=== PATIENT | male | born 2000 | race Asian ===

== ENCOUNTER 2024-06-03 11:05 | Day surgery (SDC) | payer BC ==
[2024-06-03] MEDS: Lactated Ringers 1,000 ML IV SCH (11:50)
[2024-06-03] MEDS ORDERED: propofoL 50 ML ONE (12:27)
[2024-06-03] MEDS ORDERED: Lidocaine 2% 5 ML SDV ONE (12:27)
== END 2024-06-03 14:16 | disposition home or self-care (01) ==
LOC: MW.SDS 11:05
PROVIDERS: ATTEND Surgery
DX: Z12.11 Encounter for screening for malignant neoplasm of colon (principal); Z80.0 Family history of malignant neoplasm of digestive organs
CPT/HCPCS: 45380; J2704; J7120; 00811; J3490

== ENCOUNTER 2024-08-10 20:48 | Emergency (ER) | payer BC ==
[2024-08-10] MEDS: Amoxicillin/Clavulanate K 875-125 MG Tab PO ONE (22:00)
[2024-08-10] MEDS: Rabies Immune Globulin/PF (HyperRAB) 300 UNIT/ML 1 ML SDV IM ONE (22:01)
[2024-08-10] MEDS: Rabies Immune Globulin/PF (HyperRAB) 300 UNIT/ML 5 ML SDV IM ONE (22:02)
[2024-08-10] MEDS: Rabies Vaccine (Avian) 2.5 Unit Inj Kit IM ONE (22:03)
== END 2024-08-10 22:33 | disposition home or self-care (01) ==
LOC: MW.ED 20:48
DX: S71.151A Open bite, right thigh, initial encounter (principal); Z23 Encounter for immunization; Z75.8 Other problems related to medical facilities and other health care; W54.0XXA Bitten by dog, initial encounter
CPT/HCPCS: 90375; 90471; 90675; 96372; 99283; A9270